=== PATIENT | male | born 2000 | race Caucasian/White ===

== ENCOUNTER 2020-10-24 11:01 | Emergency (ER) | payer OTHER ==
[2020-10-24 11:08] VITALS: BP 150/90; PULSE 81; TEMP 97.8; BMI 25.8
== END 2020-10-24 12:32 | disposition home or self-care (01) ==
LOC: JERFT 11:01
DX: S92.302A Fracture of unspecified metatarsal bone(s), left foot, initial encounter for closed fracture (principal)
CPT/HCPCS: 73610-TC-LT-FY; 73630-TC-LT; 99283-25